=== PATIENT | female | born 1980 | race Caucasian/White ===

== ENCOUNTER 2017-02-18 20:45 | Emergency (ER) | payer MEDICAID ==
[2017-02-19 02:16] VITALS: BP 122/78
== END 2017-02-19 02:16 | disposition home or self-care (01) ==
LOC: ED 20:45
DX: G43.909 Migraine, unspecified, not intractable, without status migrainosus (principal); R03.0 Elevated blood-pressure reading, without diagnosis of hypertension; Z88.6 Allergy status to analgesic agent
CPT/HCPCS: J2765

== ENCOUNTER 2017-09-26 16:52 | Emergency (ER) | payer MEDICAID ==
[2017-09-26 20:02] VITALS: BP 145/96
== END 2017-09-26 20:02 | disposition home or self-care (01) ==
LOC: ED 16:52
DX: G43.909 Migraine, unspecified, not intractable, without status migrainosus (principal); Z88.6 Allergy status to analgesic agent

== ENCOUNTER 2020-07-24 10:43 | Emergency (ER) | payer MEDICAID ==
[~2020-07-24] VITALS: Ht 157.5 cm; Wt 58.5 kg
[2020-07-24 10:50] VITALS: Ht 157.5 cm; Wt 58.5 kg
[2020-07-24 12:00] LABS: ALBUMIN 3.5 g/dL (3.4-5.0); ALKALINE PHOSPHATASE 56 U/L (46-116); ALT/SGPT 14 U/L (14-59); AST/SGOT 10 U/L (15-37); BILIRUBIN TOTAL 0.3 mg/dL (0.20-1.00); CALCIUM 8.1 mg/dL (8.5-10.1); CHLORIDE SERUM 104 mmol/L (98-107); CREATININE SERUM 0.9 mg/dL (0.6-1.0); GFR1 > 60 mL/min; GLUCOSE SERUM 175 mg/dL (74-106); SODIUM SERUM 139 mmol/L (136-145); TOTAL PROTEIN, SERUM 6.8 g/dL (6.4-8.2)
[2020-07-24 12:02] LABS: POTASSIUM SERUM 2.6 mmol/L (3.5-5.1)
[2020-07-24 12:20] LABS: BASOPHIL % 0.4 % (0-2); PLATELET COUNT 283 x10^3mcL (130-400); RED CELL DISTRIBUTION WIDTH 14.1 % (11.5-14.5)
[2020-07-24 14:00] LABS: FREE T4 1.02 ng/dL (0.76-1.46); FREE THYROXINE INDEX 2.6 ug/dL (1.4-4.5); T4(THYROXINE) 7.3 ug/dL (4.7-13.3)
[2020-07-24 14:31] VITALS: BP 131/76
[2020-07-26 14:33] LABS: T3 TOTAL 1.08 ng/mL
== END 2020-07-24 14:31 | disposition home or self-care (01) ==
LOC: ED 10:43
PROVIDERS: Emergency Medicine
DX: E87.6 Hypokalemia (principal); R00.2 Palpitations; T40.7X5A Adverse effect of cannabis (derivatives), initial encounter; G43.909 Migraine, unspecified, not intractable, without status migrainosus; Z88.6 Allergy status to analgesic agent; Y92.89 Other specified places as the place of occurrence of the external cause
CPT/HCPCS: 84439